=== PATIENT | male | born 1960 | race Caucasian/White ===

== ENCOUNTER 2018-03-08 09:36 | Inpatient (IN) | payer MEDICARE ==
[~2018-03-08] VITALS: Ht 182.9 cm; Wt 102.1 kg
[~2018-03-08 09:36] MED LIST: ALLO300 PO; ARIP15 PO; B Complex #11 EACH PO; CITA20 PO; CO Q10 50 MG PO; Cartia Xt180 MG PO; DILT180 PO; ENAL10 PO; Flovent Diskus50 MCG INH; LORA1 PO; MECL25 PO; OSTEO BI-FLEX1 EAC2 PO; OXCA300 PO; PRAV20 PO; PRED10 PO; TRAM50 PO; [UNRECOGNIZED DRUG - REMARK]
[2018-03-08] MEDS ORDERED: CENTRUM SILVER1 EAC2 PO (14:54)
[2018-03-08] MEDS ORDERED: ALPR.5 PO (14:55)
[2018-03-08] MEDS ORDERED: DILT180 PO (14:56)
[2018-03-08] MEDS ORDERED: Pravachol80 MG PO (14:56)
[2018-03-08] MEDS ORDERED: OLANZAPINE2.5 MG PO (14:57)
[2018-03-08] MEDS ORDERED: Budeprion Xl300 MG PO ×2 (14:57→14:58)
[2018-03-10 05:19] LABS: BASOPHILS PERCENT AUTO 0 % (0-2); EOSINOPHILS PERCENT AUTO 0 % (0-6); Hematocrit 40.3 % (37.0-53.0); Hemoglobin 13.6 g/dL (13.5-17.5); IMMATURE GRAN ABSOLUTE AUTO 0.07 K/mm3 (0.00-0.10); IMMATURE GRAN PERCENT AUTO 1 % (0-1); LYMPHOCYTES ABSOLUTE AUTO 1.19 K/mm3 (0.84-5.20); LYMPHOCYTES PERCENT AUTO 9 % (21-46); MONOCYTES ABSOLUTE AUTO 0.71 K/mm3 (0.16-1.47); MONOCYTES PERCENT AUTO 5 % (4-13); Mean Corpuscular HGB 30.9 pg (26.0-34.0); Mean Corpuscular HGB Conc 33.7 g/dL (31.5-36.5); Mean Platelet Volume 10.1 fL (9.1-12.4); NEUTROPHILS ABSOLUTE AUTO 11.75 K/mm3 (1.96-9.15); NEUTROPHILS PERCENT AUTO 86 % (41-73); Platelet Count 211 K/mm3 (150-400); RDW Coefficient Variation 12.5 % (11.7-14.2); White Blood Cell Count 13.72 K/mm3 (4.00-11.30)
[2018-03-10 05:27] LABS: Mean Corpuscular Volume 92 fL (80-100)
[2018-03-10 05:39] LABS: Anion Gap 8 mmol/L (6-16); Blood Urea Nitrogen 19 mg/dL (8-24); Bun/Creatinine Ratio 16.7 (12.0-20.0); CO2, Blood 26 mmol/L (21-32); Calcium, Blood 8.4 mg/dL (8.5-10.1); Chloride, Blood 106 mmol/L (98-108); Creatinine, Blood 1.14 mg/dL (0.60-1.20); Glomerular Filtration Rate >60 (60-); Glucose, Blood 132 mg/dL (70-99); Potassium, Blood 4.5 mmol/L (3.5-5.5); Sodium, Blood 140 mmol/L (136-145)
[2018-03-11] MEDS ORDERED: HYDMOR2 PO (14:22)
== END 2018-03-11 14:31 | disposition home or self-care (01) | DRG 983 ==
LOC: SURS 03-09 07:57
PROVIDERS: Surgery
PROC: 0DB80ZZ Excision of Small Intestine, Open Approach (ICD-10-PCS; principal; 2018-03-09 09:30)
DX: C64.9 Malignant neoplasm of unspecified kidney, except renal pelvis (principal); Z87.891 Personal history of nicotine dependence; I10 Essential (primary) hypertension; N40.0 Benign prostatic hyperplasia without lower urinary tract symptoms; M19.90 Unspecified osteoarthritis, unspecified site; J30.2 Other seasonal allergic rhinitis; Z90.5 Acquired absence of kidney; R01.1 Cardiac murmur, unspecified
CPT/HCPCS: 36415; 80048; 85025; 88309; J0295; J1100; J1170; J1885; J2250; J2370; J2405; J2710; J3010; J7120

== ENCOUNTER 2018-07-20 09:15 | Day surgery (SDC) | payer MEDICARE ==
[~2018-07-20] VITALS: Ht 182.9 cm; Wt 101.4 kg
[~2018-07-20 09:15] MED LIST changes: +24 HOUR ALLERG9.9 ML; +ACET500 PO; +ALPR.5 PO; +ALPR.5CR PO; +BACL10 PO; +Budeprion Xl300 MG PO; +CENTRUM SILVER1 EAC2 PO; +CENTRUM SILVER1 EAC4 PO; +CO Q1060 MG PO; +DIAZ10 PO; +DOCU100 PO; +Ester-C 500 MG1 EACH PO; +HYDMOR2 PO; +OLAN5 PO; +OLANZAPINE2.5 MG PO; +OXYC5 PO; +Pravachol80 MG PO; +Sutent50 MG PO; +Vitamin B Comple1 EA PO
[2018-07-20] MEDS ORDERED: OLAN5 (10:31)
== END 2018-07-20 12:24 | disposition home or self-care (01) ==
LOC: ORSCSDS 09:15
PROVIDERS: Internal Medicine Gastroenterology
PROC: 0DBH8ZX Excision of Cecum, Via Natural or Artificial Opening Endoscopic, Diagnostic (ICD-10-PCS; principal; 2018-07-20 10:45)
DX: Z12.11 Encounter for screening for malignant neoplasm of colon (principal); D12.0 Benign neoplasm of cecum; K64.8 Other hemorrhoids; K57.30 Diverticulosis of large intestine without perforation or abscess without bleeding; Z86.010 Personal history of colon polyps; I10 Essential (primary) hypertension; Z87.891 Personal history of nicotine dependence; E78.5 Hyperlipidemia, unspecified; Z79.899 Other long term (current) drug therapy
CPT/HCPCS: 88305; J7120

== ENCOUNTER 2019-05-05 07:20 | Day surgery (SDC) | payer MEDICARE, OTHER ==
[~2019-05-05] VITALS: Ht 182.9 cm; Wt 103.2 kg
[~2019-05-05 07:20] MED LIST changes: +Alprazolam ER1 MG PO; +BUPROPION HCL200 MG PO; +Co Q-1030 MG PO; +Flonase 0.05% N16 GM INH; +METO25 PO; +MYNEPHRON CAPSUL1 MG PO; +OLAN5; +VOTRIENT200 MG
[2019-05-05] MEDS ORDERED: DIAZ10 (08:11)
--- NOTE | 2019-05-05 10:40 | NUR ---
05/05/19 1040 Shea Burnette ASSUMED CARE OF PATIENT FROM ESHA Cortes RN PATIENT C/O PAIN RATED AT 5/10, MEDICATED PER ORDERS. VSS.
== END 2019-05-05 11:21 | disposition home or self-care (01) ==
LOC: ORSCSDS 07:20
PROVIDERS: Orthopaedic Surgery
PROC: 01N40ZZ Release Ulnar Nerve, Open Approach (ICD-10-PCS; principal; 2019-05-05 08:45)
DX: G56.22 Lesion of ulnar nerve, left upper limb (principal); I10 Essential (primary) hypertension; Z87.891 Personal history of nicotine dependence; Z79.899 Other long term (current) drug therapy
CPT/HCPCS: J0171; J0690; J1100; J2250; J2405; J2704; J3010; J7120

== ENCOUNTER → 2019-11-28 | Outpatient (CLI) | payer MEDICARE, OTHER ==
[~2019-11-28] MED LIST changes: +DIAZ10
== END | disposition home or self-care (01) ==
LOC: LAB SHORT 12:28 → PLD 12:28
DX: D48.5 Neoplasm of uncertain behavior of skin (principal)
CPT/HCPCS: 88305

== ENCOUNTER 2021-07-02 11:46 | Day surgery (SDC) | payer MEDICARE ==
[~2021-07-02] VITALS: Ht 182.9 cm; Wt 103.4 kg
== END 2021-07-02 13:03 | disposition home or self-care (01) ==
LOC: ORSCSDS 11:46
PROVIDERS: Internal Medicine Gastroenterology
PROC: 0DJD8ZZ Inspection of Lower Intestinal Tract, Via Natural or Artificial Opening Endoscopic (ICD-10-PCS; principal; 2021-07-02 12:30)
DX: Z12.11 Encounter for screening for malignant neoplasm of colon (principal); Z86.010 Personal history of colon polyps; Z80.0 Family history of malignant neoplasm of digestive organs; Z79.899 Other long term (current) drug therapy
CPT/HCPCS: J0461; J2405; J2704; J7120

== ENCOUNTER 2022-05-22 08:44 | Day surgery (SDC) | payer MEDICARE ==
[~2022-05-22] VITALS: Ht 182.9 cm; Wt 97.9 kg
[2022-05-22] MEDS ORDERED: KATERZIA1 MG/1 ML (09:16)
[2022-05-22] MEDS ORDERED: CALC.25 (09:17)
[2022-05-22] MEDS ORDERED: ERGO400 (09:18)
[2022-05-22] MEDS ORDERED: TAMS.4ER (09:18)
[2022-05-22] MEDS ORDERED: K-Dur10 MEQ (09:18)
[2022-05-22] MEDS ORDERED: HYDRA25 (09:18)
[2022-05-22] MEDS ORDERED: Buspirone HCl15 MG (09:19)
== END 2022-05-22 11:20 | disposition home or self-care (01) ==
LOC: ORSCSDS 08:44
PROVIDERS: Internal Medicine Gastroenterology
PROC: 0DBL8ZX Excision of Transverse Colon, Via Natural or Artificial Opening Endoscopic, Diagnostic (ICD-10-PCS; principal; 2022-05-22 10:15)
PROC: 0DBM8ZX Excision of Descending Colon, Via Natural or Artificial Opening Endoscopic, Diagnostic (ICD-10-PCS; principal; 2022-05-22 10:15)
DX: Z86.010 Personal history of colon polyps (principal); D12.3 Benign neoplasm of transverse colon; K51.40 Inflammatory polyps of colon without complications; K64.8 Other hemorrhoids; Z12.11 Encounter for screening for malignant neoplasm of colon; Z80.0 Family history of malignant neoplasm of digestive organs; I12.9 Hypertensive chronic kidney disease with stage 1 through stage 4 chronic kidney disease, or unspecified chronic kidney disease; N18.4 Chronic kidney disease, stage 4 (severe); Z99.2 Dependence on renal dialysis; F31.9 Bipolar disorder, unspecified; E78.5 Hyperlipidemia, unspecified; Z85.528 Personal history of other malignant neoplasm of kidney; Z87.891 Personal history of nicotine dependence; Z79.899 Other long term (current) drug therapy
CPT/HCPCS: 88305; J2704; J7030; J7120

== ENCOUNTER 2024-06-21 13:13 | Day surgery (SDC) | payer OTHER ==
[~2024-06-21] VITALS: Ht 182.9 cm; Wt 98.6 kg
[~2024-06-21 13:13] MED LIST changes: +Buspirone HCl15 MG; +CALC.25; +ERGO400; +Glycopyrrolate 0.2 MG/ML 1MLVIAL ONE; +HYDRA25; +K-Dur10 MEQ; +KATERZIA1 MG/1 ML; +Lactated Ringer's 1,000 ML IV ONE; +Lidocaine 2% 5 ML SDV ONE; +Lidocaine HCl/Pf 1% 5 ML VIAL ONE; +Ondansetron HCl 2 MG / ML 2ML Vial ONE; +TAMS.4ER; +ePHEDrine Sulfate 50 MG/ML 1ML Injection ONE
[2024-06-21] MEDS ORDERED: OXYB5 (14:03)
[2024-06-21] MEDS ORDERED: NS 1,000 ML IV ONE (15:14)
[2024-06-21] MEDS ORDERED: Lidocaine HCl 4% 5 ML SDA ONE (15:21)
[2024-06-21] MEDS ORDERED: propofoL 20 ML IV ONE (15:24)
[2024-06-21] MEDS ORDERED: Ondansetron HCl 2 MG / ML 2ML Vial ONE (15:30)
[2024-06-21 16:50] VITALS: BP 151/73
== END 2024-06-21 16:20 | disposition home or self-care (01) ==
LOC: ORSCSDS 13:13
PROVIDERS: Internal Medicine Gastroenterology
PROC: 0DB58ZX Excision of Esophagus, Via Natural or Artificial Opening Endoscopic, Diagnostic (ICD-10-PCS; principal; 2024-06-21 15:15)
DX: R10.13 Epigastric pain (principal); R63.4 Abnormal weight loss; K22.70 Barrett's esophagus without dysplasia; E78.5 Hyperlipidemia, unspecified; I12.0 Hypertensive chronic kidney disease with stage 5 chronic kidney disease or end stage renal disease; K59.00 Constipation, unspecified; N18.5 Chronic kidney disease, stage 5; Z87.891 Personal history of nicotine dependence; Z79.899 Other long term (current) drug therapy
CPT/HCPCS: 88305; J2003; J2405; J2704; J7120

== ENCOUNTER 2024-09-23 10:08 | Day surgery (SDC) | payer OTHER ==
[~2024-09-23] VITALS: Ht 182.9 cm; Wt 94.0 kg
[~2024-09-23 10:08] MED LIST changes: -Glycopyrrolate 0.2 MG/ML 1MLVIAL ONE; -Lidocaine 2% 5 ML SDV ONE; -Lidocaine HCl/Pf 1% 5 ML VIAL ONE; +OXYB5; -Ondansetron HCl 2 MG / ML 2ML Vial ONE; -ePHEDrine Sulfate 50 MG/ML 1ML Injection ONE
[2024-09-23] MEDS ORDERED: propofoL 50 ML IV ONE (11:02)
[2024-09-23] MEDS ORDERED: Lactated Ringer's 1,000 ML IV ONE (11:06)
[2024-09-23 12:54] VITALS: BP 108/61
--- NOTE | 2024-09-23 12:58 | NUR ---
09/23/24 Joseline Cuellar PT REPORTED SLIGHT DIZZINESS FROM VERTIGO AND HE STATES "PROBABLY FROM THE MEDICATION", VITALS WITHIN NORMAL RANGE, NO ABNORMAL SYMPTOMS REPORTED BY PATIENT, PATIENT EXPRESSES READINESS TO LEAVE.
== END 2024-09-23 12:54 | disposition home or self-care (01) ==
LOC: ORSCSDS 10:08
PROVIDERS: Internal Medicine Gastroenterology
PROC: 0DBH8ZX Excision of Cecum, Via Natural or Artificial Opening Endoscopic, Diagnostic (ICD-10-PCS; principal; 2024-09-23 11:45)
DX: R63.4 Abnormal weight loss (principal); D12.0 Benign neoplasm of cecum; I12.0 Hypertensive chronic kidney disease with stage 5 chronic kidney disease or end stage renal disease; N18.5 Chronic kidney disease, stage 5; Z87.891 Personal history of nicotine dependence; Z79.899 Other long term (current) drug therapy; Z85.46 Personal history of malignant neoplasm of prostate; Z85.528 Personal history of other malignant neoplasm of kidney; Z86.0101 Personal history of adenomatous and serrated colon polyps; Z80.0 Family history of malignant neoplasm of digestive organs
CPT/HCPCS: 36415; 80048; 88305; J2704; J7120

== ENCOUNTER 2024-10-16 14:35 | Inpatient (IN) | payer OTHER ==
[~2024-10-16] VITALS: Ht 182.9 cm; Wt 93.6 kg
[~2024-10-16 14:35] MED LIST changes: +Buspirone HCl15 MG PO; -DIAZ10; -HYDRA25; +HYDRA25 PO; -Lactated Ringer's 1,000 ML IV ONE; -TAMS.4ER; +TAMS.4ER PO
[2024-10-16] MEDS ORDERED: Morphine Sulfate 4 MG/1 ML Injection IV ONE (15:35)
[2024-10-16 15:44] LABS: BASOPHILS PERCENT AUTO 0 % (0-2); EOSINOPHILS ABSOLUTE AUTO 0.37 K/mm3 (0.00-0.68); EOSINOPHILS PERCENT AUTO 5 % (0-6); Hematocrit 36.8 % (37.0-53.0); Hemoglobin 12.2 g/dL (13.5-17.5); IMMATURE GRAN ABSOLUTE AUTO 0.02 K/mm3 (0.00-0.10); IMMATURE GRAN PERCENT AUTO 0 % (0-1); LYMPHOCYTES ABSOLUTE AUTO 1.84 K/mm3 (0.84-5.20); LYMPHOCYTES PERCENT AUTO 27 % (21-46); MONOCYTES ABSOLUTE AUTO 0.55 K/mm3 (0.16-1.47); MONOCYTES PERCENT AUTO 8 % (4-13); Mean Corpuscular HGB 31.8 pg (26.0-34.0); Mean Corpuscular HGB Conc 33.2 g/dL (31.5-36.5); Mean Corpuscular Volume 96 fL (80-100); Mean Platelet Volume 9.8 fL (9.1-12.4); NEUTROPHILS ABSOLUTE AUTO 4.03 K/mm3 (1.96-9.15); NEUTROPHILS PERCENT AUTO 59 % (41-73); Platelet Count 162 K/mm3 (150-400); RDW Coefficient Variation 13.4 % (11.7-14.2); RDW Standard Deviation 46.4 fL (35.1-46.3); Red Blood Cell Count 3.84 M/mm3 (4.30-5.90); White Blood Cell Count 6.81 K/mm3 (4.00-11.30)
[2024-10-16 16:04] LABS: International Normalized Ratio 1.01; Prothrombin Time Results 10.8 Sec (9.7-11.5)
[2024-10-16 16:15] LABS: Albumin, Blood 3.2 g/dL (3.4-5.0); Bilirubin, Total 0.4 mg/dL (0.1-1.0); Bun/Creatinine Ratio 7.7 (12.0-20.0); Calcium, Blood 8.3 mg/dL (8.5-10.1); Creatinine, Blood 3.39 mg/dL (0.60-1.20); Globulin, Blood 3.3 g/dL (2.2-4.0); Potassium, Blood 4.3 mmol/L (3.5-5.5); Total Protein, Blood 6.5 g/dL (6.4-8.2)
[2024-10-16] MEDS ORDERED: BUPROPION XL150 M1 PO (16:19)
[2024-10-16] MEDS ORDERED: POTCHL20ER PO (16:20)
[2024-10-16] MEDS ORDERED: OLAN20 MM (16:21)
[2024-10-16] MEDS ORDERED: FentaNYL Citrate 50 MCG/ML 2 ML Injection IV PRN (18:25)
[2024-10-16] MEDS ORDERED: FLU VACC TS2024-25(6MOS UP)/PF 45 MCG/0.5 ML SYRINGE IM ONE (18:25)
[2024-10-16] MEDS ORDERED: Ondansetron HCl 2 MG / ML 2ML Vial IV PRN (18:25)
[2024-10-16] MEDS ORDERED: OxyCODONE 5 mg/Acetamin 325 mg TABLET PO PRN (18:25)
[2024-10-16] MEDS ORDERED: ZYPREXA15 MG PO (20:29)
[2024-10-16] MEDS ORDERED: BusPIRone HCl 5 MG Tab PO SCH (21:00)
[2024-10-16] MEDS ORDERED: OLANZapine ODT 10 MG Tab MM SCH (21:00)
[2024-10-16] MEDS ORDERED: Docusate Sodium/Senna 1 Tab PO SCH (21:00)
[2024-10-16] MEDS ORDERED: HydrALAZINE HCl 25 MG Tab PO SCH (21:00)
[2024-10-16 22:11] VITALS: BP 160/81
[2024-10-17] VITALS (22 sets, daily range): BP systolic 108–173; BP diastolic 49–86
[2024-10-17 05:32] LABS: Hematocrit 31.2 % (37.0-53.0); Hemoglobin 10.6 g/dL (13.5-17.5); Mean Corpuscular HGB 32.2 pg (26.0-34.0); Mean Corpuscular Volume 95 fL (80-100); Mean Platelet Volume 9.5 fL (9.1-12.4); Platelet Count 207 K/mm3 (150-400); RDW Coefficient Variation 13.6 % (11.7-14.2); RDW Standard Deviation 46.6 fL (35.1-46.3); Red Blood Cell Count 3.29 M/mm3 (4.30-5.90); White Blood Cell Count 10.06 K/mm3 (4.00-11.30)
--- NOTE | 2024-10-17 05:47 | NUR ---
SHIFT SUMMARY PT BROUGHT IN FROM ED APPROX 2200 AFTER FALLING AT HOME D/T THE FLOODS. HE FRACTURED HIS LEFT FEMUR AT THE KNEE JOINT. PT IS SCHEDULED FOR SURGERY IN AM. HE IS CURRENTLY ON BED REST, SO A MALE PUREWIC HAS BEEN PLACED FOR PT S COMFORT. PT EXPRESSED HE IS IN PAIN WITH MOVEMENT, BUT WHEN LYING STILL HAS MINIMAL PAIN. PAIN MEDICATION ADMINISTERED. PT RESTING PEACEFULLY AT THIS TIME. CALL LIGHT IN REACH. [address] BEENA KOEHLER OFFICE FOR ORTHO CONSULT.
[2024-10-17 05:50] LABS: Prothrombin Time Results 10.7 Sec (9.7-11.5)
[2024-10-17 06:00] LABS: Bun/Creatinine Ratio 8.2 (12.0-20.0); Calcium, Blood 8.6 mg/dL (8.5-10.1); Creatinine, Blood 3.52 mg/dL (0.60-1.20); Potassium, Blood 4.5 mmol/L (3.5-5.5)
[2024-10-17] MEDS ORDERED: Tamsulosin HCl 0.4 MG Cap PO SCH (09:00)
[2024-10-17] MEDS ORDERED: Pravastatin Sodium 20 MG Tab PO SCH (09:00)
[2024-10-17] MEDS ORDERED: BuPROPion HCl 75 MG Tab PO SCH (09:00)
[2024-10-17] MEDS ORDERED: CeFAZolin Sodium 2,000 MG in NS 100 ML IV SCH (13:20)
[2024-10-17] MEDS ORDERED: Tranexamic Acid 100 ML IV SCH (13:20)
[2024-10-17] MEDS ORDERED: Lactated Ringer's 1,000 ML IV SCH (13:20)
[2024-10-17] MEDS ORDERED: NS 1,000 ML IV SCH (14:15)
[2024-10-17] MEDS ORDERED: propofoL 20 ML IV ONE (14:22)
[2024-10-17] MEDS ORDERED: Rocuronium Bromide 10 MG/ML 5ML Injection IV ONE (14:23)
[2024-10-17] MEDS ORDERED: Lidocaine HCl 2% 20 ML MDV ONE (14:23)
[2024-10-17] MEDS ORDERED: FentaNYL Citrate 50 MCG/ML 2 ML Injection ONE (14:24)
[2024-10-17] MEDS ORDERED: Phenylephrine HCl 100 MCG/ML-NS 10MLSYR (1MG/10ML) ONE ×2 (14:39→15:27)
[2024-10-17] MEDS ORDERED: Ondansetron HCl 2 MG / ML 2ML Vial ONE (14:47)
[2024-10-17] MEDS ORDERED: Dexamethasone Sod Phos 10 MG/ML 1ML VIAL ONE (14:47)
[2024-10-17] MEDS ORDERED: Albuterol 2.5 MG/3 ML VIAL INH PRN (15:30)
[2024-10-17] MEDS ORDERED: Ondansetron HCl 2 MG / ML 2ML Vial IV PRN (15:30)
[2024-10-17] MEDS ORDERED: FentaNYL Citrate 50 MCG/ML 2 ML Injection IV PRN ×3 (15:35)
[2024-10-17] MEDS ORDERED: HYDROmorphone HCl/Pf 1MG SYR IV PRN (15:35)
[2024-10-17] MEDS ORDERED: Labetalol HCL 5 MG/ML 4ML Injection (Single Dose) IV PRN (15:35)
[2024-10-17] MEDS ORDERED: ePHEDrine Sulfate 50 MG/ML 1ML Injection IV PRN (15:35)
[2024-10-17] MEDS ORDERED: HYDROmorphone HCl/Pf 1MG SYR ONE (16:14)
[2024-10-17] MEDS ORDERED: Bupivacaine 0.25% Epi 1:200000 30 ML Vial ONE (16:25)
[2024-10-17] MEDS ORDERED: Sugammadex Sodium 200 MG/2ML SDV (100 MG/ML) ONE (16:41)
--- NOTE | 2024-10-17 18:17 | NUR ---
TRANSFER TO UNIT AFTER RECEIVING REPORT FROM BIOMEDICAL ENGINEERING PROFESSOR, PATIENT TRANSFERRED TO UNIT VIA BED AT APPROX 1745. PATIENT LETHARGIC - EASILY AROUSABLE WITH VERBAL STIMULI BEFORE FALLING BACK TO SLEEP. DENIES PAIN. S/P L ORIF. LLE IN ACEWRAP AND BRACE - PPP. BRUISING NOTED TO TOP OF L FOOT. ON 2L VIA NC, SATs >90%. RR SHALLOW. SBP 150s. MAP >65. SCHEDULED PO HYDRALAZINE ORDERED FOR 2100. DENIES CHEST PAIN, PRESSURE. MALE PW IN PLACE TO SUCTION. IVF AND TXA INFUSING TO GRAVITY. CALL LIGHT IN REACH.
[2024-10-17] MEDS ORDERED: Docusate Sodium 100 MG Cap PO SCH (21:00)
[2024-10-18 04:53] VITALS: BP 155/72
[2024-10-18 04:54] VITALS: BP 155/72
--- NOTE | 2024-10-18 05:26 | NUR ---
SHIFT SUMMARY POD 1 L FEMUR ORIF. NO ACUTE CHANGES OVERNIGHT. VSS. TOLERATING ORALS. VOIDING USING MALE PUREWICK. HEMODIALYSIS THROUGHOUT THE NIGHT. LLE c SAEED WRAP/BRACE IN USE. PT REPORTS PAIN TOLERABLE, MEDICATED PER EMAR. MAINTAINED BEDREST STATUS. PT SLEPT WELL. CALL LIGHT IN REACH, BED IN LOWEST POSITION, WILL REPORT TO DAY RN.
[2024-10-18 08:16] VITALS: BP 144/69
[2024-10-18 15:23] VITALS: BP 135/63
--- NOTE | 2024-10-18 15:48 | NUR ---
end of shift Pt presently up to chair with 2-3 max assist. Previously sat up on bsc to pass flatus without successful bm. Wearing Knee brace L leg. LLE remains hawk wrapped. Presently resting quietly. denies complaints.
[2024-10-18 19:49] VITALS: BP 126/73
--- NOTE | 2024-10-18 20:30 | NUR ---
DISCHARGE PT REQUESTED TO DISCHARGE THIS EVENING. MICHELLE WINKLER RN WENT OVER DISCHARGE INSTRUCTIONS WITH PT. MEDF REC COMPLETED, AND DISCHARGE PAPERWORK SIGNED. IV REMOVED. WAITING TO BE WHEELED BY DISPATCHER BUS AND TROLLEY AT THIS TIME.
[2024-10-19 03:13] LABS: BASOPHILS ABSOLUTE AUTO 0.01 K/mm3 (0.00-0.23); BASOPHILS PERCENT AUTO 0 % (0-2); EOSINOPHILS ABSOLUTE AUTO 0.05 K/mm3 (0.00-0.68); EOSINOPHILS PERCENT AUTO 1 % (0-6); Hematocrit 23.4 % (37.0-53.0); Hemoglobin 7.9 g/dL (13.5-17.5); IMMATURE GRAN ABSOLUTE AUTO 0.02 K/mm3 (0.00-0.10); IMMATURE GRAN PERCENT AUTO 0 % (0-1); LYMPHOCYTES ABSOLUTE AUTO 2.44 K/mm3 (0.84-5.20); LYMPHOCYTES PERCENT AUTO 26 % (21-46); MONOCYTES PERCENT AUTO 11 % (4-13); Mean Corpuscular HGB 31.7 pg (26.0-34.0); Mean Corpuscular HGB Conc 33.8 g/dL (31.5-36.5); Mean Corpuscular Volume 94 fL (80-100); Mean Platelet Volume 9.7 fL (9.1-12.4); NEUTROPHILS ABSOLUTE AUTO 5.83 K/mm3 (1.96-9.15); NEUTROPHILS PERCENT AUTO 62 % (41-73); Platelet Count 155 K/mm3 (150-400); RDW Coefficient Variation 13.5 % (11.7-14.2); RDW Standard Deviation 46.5 fL (35.1-46.3); Red Blood Cell Count 2.49 M/mm3 (4.30-5.90); White Blood Cell Count 9.35 K/mm3 (4.00-11.30)
[2024-10-19 03:37] LABS: Albumin, Blood 2.7 g/dL (3.4-5.0); Anion Gap 9 mmol/L (3-11); Blood Urea Nitrogen 40 mg/dL (8-24); CO2, Blood 25 mmol/L (21-32); Calcium, Blood 8.1 mg/dL (8.5-10.1); Chloride, Blood 108 mmol/L (98-108); Creatinine, Blood 4.42 mg/dL (0.60-1.20); Glomerular Filtration Rate 14 (60-); Glucose, Blood 106 mg/dL (70-99); Iron Serum 23 ug/dL (65-175); Percent Saturation 12.8 % (20.0-50.0); Phosphorus, Blood 3.8 mg/dL (2.5-4.9); Potassium, Blood 3.9 mmol/L (3.5-5.5); Sodium, Blood 138 mmol/L (136-145); Total Iron Binding Capacity 179 ug/dL (250-450)
[2024-10-19 04:10] VITALS: BP 147/73
--- NOTE | 2024-10-19 05:53 | NUR ---
SHIFT SUMMARY PT HAS RESTED T/O THE SHIFT. PT S/P LEFT ORIF, SURGICAL SITE WNL. PAIN BEING MANAGED PER MAR. MALE PUREWICK IN PLACE, PT VOIDING. PERITONEAL DIALYSIS IN PLACE T/O SHIFT, BEING MANAGED BY RN INTENSIVE CARE UNIT. VITALS STABLE. PLAN OF CARE UNCHANGED. BED IN LOWEST POSITION, CALL LIGHT WITHIN REACH.
--- NOTE | 2024-10-19 07:31 | NUR ---
PT EYES CLOSED AND QUIET UPON ENTERING ROOM. PT WAKENS EASILY TO FULL ORIENT. OVERNIGHT PD THERAPY COMPLETE ORDERED. PT AESEPTICALLY DISCONNECTED AND CAPPED. CYCLER STRIPPED AND CLEANED.
[2024-10-19 07:34] VITALS: BP 137/64
[2024-10-19] MEDS ORDERED: Potassium Chloride 10 Meq Tablet SA PO SCH (08:00)
[2024-10-19] MEDS ORDERED: Vitamin B Cmplx/Vit C/Folic Ac 1 Tab PO SCH (09:00)
[2024-10-19] MEDS ORDERED: OxyCODONE 5 mg/Acetamin 325 mg TABLET PO PRN (10:55)
[2024-10-19] MEDS ORDERED: Docusate Sodium 100 MG Cap PO SCH (11:00)
[2024-10-19] MEDS ORDERED: Sod Ferric Gluc Complx/Sucrose 125 MG in NS 100 ML IV SCH (12:00)
[2024-10-19 15:21] VITALS: BP 127/62
[2024-10-19] MEDS ORDERED: Epoetin Alfa-EPBX 10,000 Unit/ML 1ML Vial SC SCH (17:10)
--- NOTE | 2024-10-19 17:33 | NUR ---
SUMMARY AOX4, IMMOBILIZER WITH SAEED WRAP TO RLE, SCDS IN PLACE. PATIENT WORKED WITH THERAPY TO EOB, DENIES N/V. LITTLE INTAKE D/T DECREASED APPETITE. MEDICATED FOR PAIN. PD DIALYSIS IS RUNNING WITH EDUIN WARNER THIS EVENING. VERY LOW URINE OUTPUT. NO ACUTE EVENTS. CALL LIGHT IN REACH.
--- NOTE | 2024-10-19 18:42 | NUR ---
PT AWAKE / ALERT LAYING IN BED WATCHING TV. PT VERBALIZED RELATIVE COMFORT AT THIS TIME. CYCLER STRUNG, PRIMED AND PROGRAMMED PER RX. WHEN PRIME COMPLETE, PT AESEPTICALLY CONNECTED. PT MONITORED THROUGH FILL #1 AND NO DISCOMFORT REPORTED. EXIT SITE CARE DONE. NEW STERILE DRESSING APPLIED WITH ONE STRAIN RELIEF.
[2024-10-19 19:17] LABS: HEPATITIS B SURFACE ANTIGEN Negative (Negative)
[2024-10-19 19:28] LABS: HEPATITIS B SURFACE ANTIBODY 31.54 IU/L
[2024-10-19 19:41] LABS: HBV CORE ANTIBODIES,TOTAL Negative (Negative)
[2024-10-19 21:35] VITALS: BP 144/65
[2024-10-20 04:16] VITALS: BP 133/58
--- NOTE | 2024-10-20 04:58 | NUR ---
SHIFT SUMMARY S/P LEFT KNEE ORIF. IMMOBILIZER AND SAEED WRAP IN PLACE TO LLE/KNEE. PAIN MANAGED PER EMAR. IS VOIDING, MALE PUREWICK IN PLACE. PRINCE PO INTAKE. IV PATENT/SL. TMAX 100.1 AT 2100 VITALS; PT EDUCATED ON AND FREQUENTLY ENCOURAGED DEEP BREATHING EXERCISES. PT DEMONSTRATED AND VERBALIZED UNDERSTANDING. EXTRA BLANKETS REMOVED AND THERMOSTAT DECREASED DUE TO BEING ON MAX HIGH. TEMP POST INTERVENTIONS REMAINED UNDER 100. PT REFUSED SCDS. PD DIALYSIS PORT CDI. PLAN TO WORK WITH THERAPY TODAY. WILL GIVE REPORT TO ONCOMING RN.
[2024-10-20 05:49] LABS: Albumin, Blood 2.4 g/dL (3.4-5.0); Anion Gap 10 mmol/L (3-11); Blood Urea Nitrogen 42 mg/dL (8-24); Bun/Creatinine Ratio 9.2 (12.0-20.0); CO2, Blood 25 mmol/L (21-32); Calcium, Blood 8.3 mg/dL (8.5-10.1); Chloride, Blood 107 mmol/L (98-108); Creatinine, Blood 4.59 mg/dL (0.60-1.20); Glomerular Filtration Rate 14 (60-); Glucose, Blood 112 mg/dL (70-99); Phosphorus, Blood 3.4 mg/dL (2.5-4.9); Potassium, Blood 3.5 mmol/L (3.5-5.5); Sodium, Blood 138 mmol/L (136-145)
[2024-10-20 07:22] VITALS: BP 125/62
[2024-10-20] MEDS ORDERED: Heparin Sodium 5000 Units/ML 1ML MDV SC SCH (11:04)
[2024-10-20] MEDS ORDERED: Sod Ferric Gluc Complx/Sucrose 125 MG in NS 100 ML IV SCH (12:00)
[2024-10-20 14:40] VITALS: BP 135/67
[2024-10-20] MEDS ORDERED: Heparin Sodium 1000 Units/ML 10ML MDV ONE (16:07)
[2024-10-20] MEDS ORDERED: NS 250 ML IV ONE (16:08)
--- NOTE | 2024-10-20 16:23 | NUR ---
SHIFT SUMMARY NO ACUTE CHANGES TODAY. VSS. SAEED WRAP + IMMOBILIZER TO LLE ARE CDI. PT WORKED WITH THERAPY TODAY AND WAS UP TO THE SIDE OF THE BED DOING EXERCISES. THERAPY VERBALIZED IT WAS AN IMPROVED SESSION FROM YESTERDAY. 2 ROXICODONE FOR PAIN CONTROL. PT PRINCE REG DIET, BUT NOW NPO FOR PERMACATH PLACEMENT POSSIBLY THIS EVENING. PT USES CALL LIGHT APPROPRIATELY.
--- NOTE | 2024-10-20 16:33 | NUR ---
PT TO IR FOR PERMACATH PLACEMENT.
[2024-10-20] MEDS ORDERED: Midazolam HCl 1MG / ML 2ML Vial ONE (16:37)
[2024-10-20] MEDS ORDERED: NS 1,000 ML IV ONE (16:38)
[2024-10-20] MEDS ORDERED: FentaNYL Citrate 50 MCG/ML 2 ML Injection ONE (16:38)
[2024-10-20] MEDS ORDERED: Heparin Sodium 10,000 Units/ML 1ML MDV ONE (17:03)
[2024-10-20 17:25] VITALS: BP 123/59
--- NOTE | 2024-10-20 17:46 | NUR ---
PT AWAKE / ALERT / ORIENTED, LAYING IN BED POST RIGHT CHEST PERM CATH INSERT EARLIER BY DR RUIZ. CVC SITE CLEAR / INTACT / STABLE. CYCLER STRUNG, PRIMED AND PROGRAMMED PER RX. WHEN PRIME COMPLETE, PT AESEPTICALLY CONNECTED AND OVERNIGHT CCPD STARTED. EXIT SITE CARE PERFORMED. CLEANED WITH EXSEPT AND NEW STERILE DRESSING APPLIED WITH ONE STRAIN RELIEF. SURGICAL FLOOR STAFF AWARE OF OVERNIGHT CCPD IN PROGRESS.
--- NOTE | 2024-10-20 18:07 | NUR ---
NEW PERMACATH TO R CHEST WALL. GRAB OPERATOR AT BEDSIDE CURRENTLY SETTING UP PERITONEAL DIALYSIS.
[2024-10-20 20:31] VITALS: BP 157/59
[2024-10-20 23:14] VITALS: BP 156/67
[2024-10-21] VITALS (16 sets, daily range): BP systolic 98–152; BP diastolic 37–73
[2024-10-21 04:56] LABS: BASOPHILS PERCENT AUTO 0 % (0-2); EOSINOPHILS ABSOLUTE AUTO 0.21 K/mm3 (0.00-0.68); EOSINOPHILS PERCENT AUTO 3 % (0-6); Hematocrit 22.5 % (37.0-53.0); Hemoglobin 7.3 g/dL (13.5-17.5); IMMATURE GRAN ABSOLUTE AUTO 0.02 K/mm3 (0.00-0.10); IMMATURE GRAN PERCENT AUTO 0 % (0-1); LYMPHOCYTES ABSOLUTE AUTO 2.03 K/mm3 (0.84-5.20); LYMPHOCYTES PERCENT AUTO 29 % (21-46); MONOCYTES ABSOLUTE AUTO 0.72 K/mm3 (0.16-1.47); MONOCYTES PERCENT AUTO 10 % (4-13); Mean Corpuscular HGB 31.3 pg (26.0-34.0); Mean Corpuscular HGB Conc 32.4 g/dL (31.5-36.5); Mean Corpuscular Volume 97 fL (80-100); Mean Platelet Volume 9.4 fL (9.1-12.4); NEUTROPHILS ABSOLUTE AUTO 4.04 K/mm3 (1.96-9.15); NEUTROPHILS PERCENT AUTO 58 % (41-73); Platelet Count 176 K/mm3 (150-400); RDW Coefficient Variation 13.7 % (11.7-14.2); Red Blood Cell Count 2.33 M/mm3 (4.30-5.90); White Blood Cell Count 7.02 K/mm3 (4.00-11.30)
[2024-10-21 05:22] LABS: Albumin, Blood 2.5 g/dL (3.4-5.0); Albumin/Globulin Ratio 0.7 (0.8-1.8); Bilirubin, Total 0.5 mg/dL (0.1-1.0); Calcium, Blood 8.5 mg/dL (8.5-10.1); Creatinine, Blood 4.4 mg/dL (0.60-1.20); Globulin, Blood 3.5 g/dL (2.2-4.0); Phosphorus, Blood 3.1 mg/dL (2.5-4.9); Potassium, Blood 3.5 mmol/L (3.5-5.5)
--- NOTE | 2024-10-21 07:43 | NUR ---
PER SUPERVISOR MOLD YARD PATIENT WAS A LITTLE CONFUSED. WHEN I ASSESSED PT HE WAS ALERT AND ORIENTED X3. LT LEG IN SOFT BRACE, ACEWRAP COVERING DRESSING, NO DRAINAGE NOTED. PATIENT ANSWERS QUESTIONS APPROP. USES CALL LIGHT APPROP. PERITONEAL DIALYSIS AT THIS TIME CATH RIGHT ABD. PT HAD A PERMACATH PLACED RIGH UPPER CHEST. SCHEDULED MEDS GIVEN ORDERED. PATIENT TAKES MEDS WITH NO PROBLEMS. THIS AM WHEN LAB CAME TO DRAW BLOOD THE SAID THAT THERE WAS WATER UNDER THE BED AND ALL OVER THE FLOOR. DIALYSIS BAG ON THE BOTTOM RACK WAS DRIPPING STEADLY FROM CAP. TRIED TO TIGHTEN CAP BUT IT CONT.TO LEAK. CLAMP DIRECTLY ABOVE CAP WAS OPEN. CLAMPED SHUT AT THIS TIME AND NOW NOT LEAKING. FLUID WAS GOING UNDER BED T/O NOC AND IT WASNT UNTIL IT CAME OUT FROM UNDER THE BED THEN IT WAS NOTICED. HOUSE KEEPING CALLED. NO ACUTE CHANGES T/O NOC. REPORT TO RN COMING ON TAKING THIS PATIENT. SL LEFT HAND WAS LEAKING, DC'D. RT HAND SL FLUSHED AND PATENT.
--- NOTE | 2024-10-21 09:24 | NUR ---
DIALYSIS: PT TO DIALYSIS AT THIS TIME. AT BEDSIDE. PT GIVEN MORNING MEDS. HYDRALAZINE HELD PER PRECISION MACHINE OPERATOR REQUEST. MEDICATED FOR PAIN.
--- NOTE | 2024-10-21 16:47 | NUR ---
SHIFT SUMMARY/UPDATE ASSUMED CARE OF PT FROM DENISE DENNY AT 1330. PT RESTING IN BED W/ FAMILY AT BEDSIDE. WORKED W/ OT, PT FEBRILE AT 100.2 AND TACHY AT 112 PAINFUL AFTER THERAPY. MEDICATED W/ PERCOCET PER EMAR. ORAL TEMP RECHECK 98.8, BUT PT THEN BECAME INCREASINGLY CONFUSED, ALERT AND RESPONSIVE BUT ONLY ORIENTED TO HIMSELF. DR. OH NOTIFIED OF PT'S FEVER, TACHYCARDIA, AND INCREASED CONFUSION. ORDERS FOR CULTURES RECIEVED AND URINALYSIS. AWAITING PT'S NEXT VOID. SKIN CHECKED FOR NEW INJURIES/REDNESS PER DR. OH, NO NEW FINDINGS NOTED. DR. OH TO ASSESS PT AT BEDSIDE THIS EVENING. DRESSING TO L LEG C/D/I, INCISION SITE W/O REDNESS/SWELLING. PT ABLE TO WIGGLE L TOES ON COMMAND, PEDAL PULSE PALPABLE. AREA AROUND PERMACATH ALSO C/D/I W/O REDNESS/INFLAMMATION. PT RESTING IN BED W/ CAMP DIRECTOR AT BEDSIDE, CALL LIGHT IN REACH, BED ALARM ON.
[2024-10-21] MEDS ORDERED: Magnesium Hydroxide Conc 10 ML UDC PO PRN (16:50)
[2024-10-21] MEDS ORDERED: Sod Ferric Gluc Complx/Sucrose 125 MG in NS 100 ML IV SCH (17:00)
[2024-10-21] MEDS ORDERED: Acetaminophen 325 MG TABLET PO PRN (17:55)
--- NOTE | 2024-10-21 18:03 | NUR ---
DIALYSIS NURSE PRO CONTACTED FOR STAT PERMACATH CULTURES PER DR. OH
[2024-10-21 18:08] LABS: Source, Urine Voided
[2024-10-21 18:26] LABS: Appearance, Urine Clear (Clear); Bilirubin, Urine Neg (Neg); Blood, Urine 2+ (Neg); Color, Urine Yellow (P-Yellow); Glucose Qualitative, Urine Neg (Neg); Ketones, Urine Neg (Neg); Leukocyte Esterase, Urine Neg (Neg); Nitrite, Urine Neg (Neg); Protein, Urine 2+ (Neg); Urobilinogen, Urine NORM (Normal)
[2024-10-21 18:42] LABS: Hyaline Casts 0-2 /lpf (0-2); Red Blood Cells, Urine 0-2 /hpf (0-2); Squamous Epithelial Cells Rare /hpf (Few); White Blood Cells, Urine 0-2 /hpf (0-5)
[2024-10-21 18:43] LABS: Bacteria Not Seen /hpf
--- NOTE | 2024-10-21 19:22 | NUR ---
DIALYSIS NURSE CALLED TO COME AND CULTURE PTS HEMODIALYSIS CATHETER. BLOOD CULTURES DRAWN ASEPTICALLY FROM RIGHT PERMACATH AND SENT TO LAB AT APPROX 1915PM.
[2024-10-21] MEDS ORDERED: Docusate Sodium 250 MG Cap PO SCH (21:00)
[2024-10-22 00:36] VITALS: BP 128/51
--- NOTE | 2024-10-22 01:13 | NUR ---
PROVIDER UPDATED HOSPITALIST NOTIFIED OF PT CONFUSION, VITALS SIGNS AND OVERALL STATUS. NO NEW ORDERS OBTAINED.
[2024-10-22 03:33] VITALS: BP 136/63
--- NOTE | 2024-10-22 04:34 | NUR ---
PATY SUMMARY S/P LEFT FEMUR ORIF. BRACE AND SAEED WRAP TO LLE IN PLACE, NO DRAINAGE NOTED. NO C/O OF PAIN. DRESSING TO CATH IN R CHEST CDI. A/O TO SELF ONLY AT START OF SHIFT AND VERY CONFUSED; NOW HAS INTERMITTENT EPISODES OF A/OX3. VITAL SIGNS HAVE IMPROVED. IS VOIDING IN URINAL WITH ASSISTANCE AND PASSING FLATUS. PRINCE PO INTAKE. PT ABLE TO REPOSITION SELF SOME IN BED IND. COMPULSIVE AND IRRITABLE AT TIMES. APPEARS TO HAVE RESTED COMFORTABLY FOR PERIODS T/O NIGHT. SITTER PRESENT FOR ASSISTANCE AND SAFETY. PLAN TO WORK WITH THERAPY TODAY. WILL GIVE REPORT TO ONCOMING RN.
[2024-10-22 05:46] LABS: Albumin, Blood 2.5 g/dL (3.4-5.0); Anion Gap 8 mmol/L (3-11); Blood Urea Nitrogen 32 mg/dL (8-24); Bun/Creatinine Ratio 9.4 (12.0-20.0); CO2, Blood 28 mmol/L (21-32); Calcium, Blood 8.7 mg/dL (8.5-10.1); Chloride, Blood 104 mmol/L (98-108); Creatinine, Blood 3.41 mg/dL (0.60-1.20); Glomerular Filtration Rate 19 (60-); Glucose, Blood 100 mg/dL (70-99); Phosphorus, Blood 2.6 mg/dL (2.5-4.9); Potassium, Blood 3.4 mmol/L (3.5-5.5); Sodium, Blood 137 mmol/L (136-145)
[2024-10-22 08:00] VITALS: BP 153/66
--- NOTE | 2024-10-22 10:36 | NUR ---
MORNING NOTE THIS RN ASSUMED CARE AT APPROX 0715. PATIENT ALERT AND ORIENTED X3 - UNCLEAR TO DATE/TIME, LOCATION. FORGETFUL - ASKS QUESTIONS TO GAIN UNDERSTANDING. FLAT AFFECT. CLINICAL SITTER AT BEDSIDE TO ASSIST WITH CARE AND REDIRECTION. BED ALARM/CHAIR ALARM IN USE. SBP 150s. MAP >65. DENIES CHEST PAIN, PRESSURE. SCHEDULED PO HYDRALAZINE ADMINISTERED PER EMAR. ON ROOM AIR, SATs >90%. S/P L ORIF - IMMOBILIZER IN PLACE. SAEED WRAP C/D/I - NO SHADOWING NOTED. UP WITH PHYSICAL THERAPY THIS MORNING - 2P ASSIST FWW GB. TOE TOUCH WEIGHT BEARING STATUS. PAIN TOLERABLE AT THIS TIME. CURRENTLY SITTING UP IN CHAIR. BEDBATH PERFORMED. ATTENDS IN PLACE FOR EPISODES OF URINARY INCONTINENCE - CHANGING PRN TO KEEP C/D/I. CALL LIGHT IN REACH. MD OH ROUNDING THIS MORNING - DISCUSSED RESTARTING ALL HOME PSYCH MEDS. ORDER RECEIVED TO RESTART DAILY PO XYPREXA AND PO WELLBUTRIN AT HOME DOSES. DOSAGE VERIFIED WITH AT BEDSIDE.
--- NOTE | 2024-10-22 13:49 | NUR ---
REPORT GIVEN TO ACCEPTING RN ON MEDICAL FLOOR TO ASSUME CARE FOLLOWING TRANSFER
[2024-10-22 14:08] VITALS: BP 124/66
--- NOTE | 2024-10-22 14:14 | NUR ---
TRANSFER PT ARRIVED TO ROOM WITHOUT COMPLICATION. ON ROOM AIR, PT REPORTS BEING "CONTINENT", BED SWAPPED. SKIN SEEMS TO BE UNCHANGED FROM PREVIOUS ASSESSMENT. PT INTRODUCED TO ROOM. BED IN LOWEST POSITION, CALL LIGHT WITHIN REACH.
[2024-10-22] MEDS ORDERED: NS 250 ML IV PRN (15:20)
--- NOTE | 2024-10-22 17:12 | NUR ---
SHIFT SUMMARY PT AOX4, COOPERATIVE, ABLE TO MAKE NEEDS KNOWN. PT HAS REMAINED IN BED SINCE TRANSFER TO [facility] FLOOR. USING URINAL APPROPRIATELY. COMPLAINED OF PAIN ONCE, MEDICATED PER EMAR. FAMILY IS BEDSIDE. NO OTHER COMPLAINTS THIS SHIFT. BED IN LOWEST POSITION, CALL LIGHT WITHIN REACH.
[2024-10-22 17:42] LABS: Albumin, Blood 2.3 g/dL (3.4-5.0); Albumin/Globulin Ratio 0.6 (0.8-1.8); Bilirubin, Total 0.8 mg/dL (0.1-1.0); Bun/Creatinine Ratio 9.6 (12.0-20.0); Calcium, Blood 8.8 mg/dL (8.5-10.1); Creatinine, Blood 3.84 mg/dL (0.60-1.20); Potassium, Blood 3.4 mmol/L (3.5-5.5); Total Protein, Blood 6.3 g/dL (6.4-8.2)
[2024-10-22 19:49] VITALS: BP 128/64
[2024-10-23 05:33] VITALS: BP 135/60
--- NOTE | 2024-10-23 05:39 | NUR ---
SHIFT SUMMARY NOC PT A/O X 4. WITHDRAWN, BUT COOPERATIVE WITH CARE. VSS. NO ACUTE EVENTS TO REPORT. PT POST OP DAY 6 L FEMORAL FX REPAIR, PAIN BEING MANAGED PER EMAR. IMMOBILIZER DEVICE IN PLACE ON LLE OVER DRESSINGS. PT GIVEN PRUNE JUICE WITH EVENING RX TO HELP INTITIATE BM BEFORE GIVING MOM, DUE TO PT CONCERNS OF NOT MAKING IT TO BSC IN TIME DUE TO LIMITED MOBILTIY. PT CURRENTLY RESTING WITH BED IN LOWEST POSITION, AND CALL LIGHT WITHIN REACH.
[2024-10-23 05:40] LABS: BASOPHILS ABSOLUTE AUTO 0.01 K/mm3 (0.00-0.23); BASOPHILS PERCENT AUTO 0 % (0-2); EOSINOPHILS ABSOLUTE AUTO 0.55 K/mm3 (0.00-0.68); EOSINOPHILS PERCENT AUTO 8 % (0-6); Hematocrit 24.4 % (37.0-53.0); Hemoglobin 7.9 g/dL (13.5-17.5); IMMATURE GRAN ABSOLUTE AUTO 0.03 K/mm3 (0.00-0.10); IMMATURE GRAN PERCENT AUTO 0 % (0-1); LYMPHOCYTES ABSOLUTE AUTO 2.24 K/mm3 (0.84-5.20); LYMPHOCYTES PERCENT AUTO 33 % (21-46); MONOCYTES ABSOLUTE AUTO 0.74 K/mm3 (0.16-1.47); MONOCYTES PERCENT AUTO 11 % (4-13); Mean Corpuscular HGB 31.5 pg (26.0-34.0); Mean Corpuscular HGB Conc 32.4 g/dL (31.5-36.5); Mean Corpuscular Volume 97 fL (80-100); Mean Platelet Volume 9.1 fL (9.1-12.4); NEUTROPHILS ABSOLUTE AUTO 3.32 K/mm3 (1.96-9.15); NEUTROPHILS PERCENT AUTO 48 % (41-73); Platelet Count 202 K/mm3 (150-400); RDW Coefficient Variation 14.1 % (11.7-14.2); RDW Standard Deviation 47.8 fL (35.1-46.3); Red Blood Cell Count 2.51 M/mm3 (4.30-5.90); White Blood Cell Count 6.89 K/mm3 (4.00-11.30)
[2024-10-23 06:06] LABS: Albumin, Blood 2.5 g/dL (3.4-5.0); Anion Gap 8 mmol/L (3-11); Blood Urea Nitrogen 43 mg/dL (8-24); CO2, Blood 27 mmol/L (21-32); Calcium, Blood 8.9 mg/dL (8.5-10.1); Chloride, Blood 107 mmol/L (98-108); Creatinine, Blood 4.28 mg/dL (0.60-1.20); Glomerular Filtration Rate 15 (60-); Glucose, Blood 96 mg/dL (70-99); Magnesium, Blood 2.6 mg/dL (1.6-2.4); Phosphorus, Blood 4.4 mg/dL (2.5-4.9); Potassium, Blood 3.9 mmol/L (3.5-5.5); Sodium, Blood 138 mmol/L (136-145)
[2024-10-23 07:49] VITALS: BP 141/73
[2024-10-23] MEDS ORDERED: Potassium Chloride 10 Meq Tablet SA PO SCH (08:00)
[2024-10-23] MEDS ORDERED: OLANZapine 10 MG Tab PO SCH (09:00)
[2024-10-23] MEDS ORDERED: buPROPion HCL 150 MG TAB.SR.12H PO SCH (09:00)
[2024-10-23 15:32] VITALS: BP 127/64
[2024-10-23 16:45] LABS: Albumin, Blood 2.6 g/dL (3.4-5.0); Albumin/Globulin Ratio 0.6 (0.8-1.8); Bilirubin, Total 0.5 mg/dL (0.1-1.0); Bun/Creatinine Ratio 10.4 (12.0-20.0); Calcium, Blood 9.1 mg/dL (8.5-10.1); Creatinine, Blood 4.31 mg/dL (0.60-1.20); Globulin, Blood 4.1 g/dL (2.2-4.0); Total Protein, Blood 6.7 g/dL (6.4-8.2)
--- NOTE | 2024-10-23 18:32 | NUR ---
SHIFT SUMMARY PT A&OX4, VSS, DID NOT AMB THIS SHIFT, IS TOLERATING PO, VOIDING URINE, AND PAIN MANAGED PER EMAR. IMMOBILIZER REMAINS IN PLACE. LAST DOSE OF IRON GIVEN. NO OTHER ACUTE CHANGES. PLAN FOR D/C TO SNF, INSURANCE AUTH PENDING. CALL LIGHT WITHIN REACH AND PT ABLE TO MAKE NEEDS KNOWN.
[2024-10-23 19:31] VITALS: BP 122/59
[2024-10-24] VITALS (19 sets, daily range): BP systolic 91–140; BP diastolic 56–71
--- NOTE | 2024-10-24 05:20 | NUR ---
SHIFT SUMMARY NOC PT A/O X 4. WITHDRAWN, BUT PLEASANT AND COOOPERATIVE WITH CARE. VSS. POST OP DAY 7 L FEMUR ORIF, HAS IMMOBILIZER IN PLACE. PAIN BEING MANAGED PER EMAR. DR MADRIGAL SAW PT AT BEGINNING OF SHIFT AND TOLD PT THAT THEY WILL HAVE DIALYSIS TODAY. PT HAS PERM CATH IN [facility]. PT RECEIVED LAST DOSE OF IRON REPLACEMENT YESTERAY. PT CURRENTLY RESTING WITH BED IN LOWEST POSITION, AND CALL LIGHT WITHIN REACH.
[2024-10-24 06:10] LABS: BASOPHILS PERCENT AUTO 0 % (0-2); EOSINOPHILS ABSOLUTE AUTO 0.48 K/mm3 (0.00-0.68); EOSINOPHILS PERCENT AUTO 7 % (0-6); Hematocrit 23.5 % (37.0-53.0); Hemoglobin 7.8 g/dL (13.5-17.5); IMMATURE GRAN ABSOLUTE AUTO 0.03 K/mm3 (0.00-0.10); IMMATURE GRAN PERCENT AUTO 0 % (0-1); LYMPHOCYTES ABSOLUTE AUTO 2.03 K/mm3 (0.84-5.20); LYMPHOCYTES PERCENT AUTO 29 % (21-46); MONOCYTES ABSOLUTE AUTO 0.84 K/mm3 (0.16-1.47); MONOCYTES PERCENT AUTO 12 % (4-13); Mean Corpuscular HGB 32.4 pg (26.0-34.0); Mean Corpuscular HGB Conc 33.2 g/dL (31.5-36.5); Mean Corpuscular Volume 98 fL (80-100); Mean Platelet Volume 9.1 fL (9.1-12.4); NEUTROPHILS ABSOLUTE AUTO 3.69 K/mm3 (1.96-9.15); NEUTROPHILS PERCENT AUTO 52 % (41-73); Platelet Count 217 K/mm3 (150-400); RDW Coefficient Variation 14.3 % (11.7-14.2); RDW Standard Deviation 48.8 fL (35.1-46.3); Red Blood Cell Count 2.41 M/mm3 (4.30-5.90); White Blood Cell Count 7.07 K/mm3 (4.00-11.30)
[2024-10-24 06:33] LABS: Albumin, Blood 2.5 g/dL (3.4-5.0); Anion Gap 10 mmol/L (3-11); Blood Urea Nitrogen 49 mg/dL (8-24); Bun/Creatinine Ratio 10.7 (12.0-20.0); CO2, Blood 25 mmol/L (21-32); Chloride, Blood 106 mmol/L (98-108); Creatinine, Blood 4.56 mg/dL (0.60-1.20); Glomerular Filtration Rate 14 (60-); Glucose, Blood 92 mg/dL (70-99); Phosphorus, Blood 4.5 mg/dL (2.5-4.9); Sodium, Blood 137 mmol/L (136-145)
--- NOTE | 2024-10-24 17:50 | NUR ---
PT HAD DIALYSIS TODAY AROUND 0830 AND HAS BEEN LETHARGIC SINCE. PT HAD NO C/O PAIN, SOB OR CHEST PAIN
[2024-10-25 03:39] VITALS: BP 137/67
--- NOTE | 2024-10-25 05:32 | NUR ---
SHIFT SUMMARY; PATIENT SLEPT IN LONG INTERVALS. MEDICATED SEVERAL TIMES FOR PAIN. NO BM'S THIS SHIFT.
[2024-10-25 07:15] LABS: Albumin, Blood 2.7 g/dL (3.4-5.0); Anion Gap 8 mmol/L (3-11); Blood Urea Nitrogen 33 mg/dL (8-24); Bun/Creatinine Ratio 9.5 (12.0-20.0); CO2, Blood 32 mmol/L (21-32); Calcium, Blood 8.7 mg/dL (8.5-10.1); Chloride, Blood 99 mmol/L (98-108); Creatinine, Blood 3.48 mg/dL (0.60-1.20); Glomerular Filtration Rate 19 (60-); Glucose, Blood 95 mg/dL (70-99); Phosphorus, Blood 2.6 mg/dL (2.5-4.9); Potassium, Blood 3.7 mmol/L (3.5-5.5); Sodium, Blood 135 mmol/L (136-145)
[2024-10-25 07:31] VITALS: BP 141/73
[2024-10-25] MEDS ORDERED: Percocet 5-3251 EACH PO (08:29)
--- NOTE | 2024-10-25 11:01 | NUR ---
[facility] ALL PIV'S REMOVED. D/C PACKET IN HAND
== END 2024-10-25 10:38 | DRG 480 ==
LOC: ER 14:35 → ERHOLD 18:22 → MEDS 18:22 → SURS 10-17 17:05 → MEDS 10-22 14:05
PROVIDERS: Hospitalist; Internal Medicine; Nurse Practitioner Acute Care; Student in an Organized Health Care Education/Training Program; ADMIT Student in an Organized Health Care Education/Training Program
PROC: 0QSC04Z Reposition Left Lower Femur with Internal Fixation Device, Open Approach (ICD-10-PCS; principal; 2024-10-18)
PROC: 02HV33Z Insertion of Infusion Device into Superior Vena Cava, Percutaneous Approach (ICD-10-PCS; 2024-10-20)
PROC: 0JH60XZ Insertion of Tunneled Vascular Access Device into Chest Subcutaneous Tissue and Fascia, Open Approach (ICD-10-PCS; 2024-10-20)
PROC: 5A1D70Z Performance of Urinary Filtration, Intermittent, Less than 6 Hours Per Day (ICD-10-PCS; 2024-10-20)
PROC: B5181ZA Fluoroscopy of Superior Vena Cava using Low Osmolar Contrast, Guidance (ICD-10-PCS; 2024-10-20)
PROC: B548ZZA Ultrasonography of Superior Vena Cava, Guidance (ICD-10-PCS; 2024-10-20)
DX: S72.492A Other fracture of lower end of left femur, initial encounter for closed fracture (principal); N18.6 End stage renal disease; I12.0 Hypertensive chronic kidney disease with stage 5 chronic kidney disease or end stage renal disease; N25.81 Secondary hyperparathyroidism of renal origin; G93.40 Encephalopathy, unspecified; Z99.2 Dependence on renal dialysis; F31.9 Bipolar disorder, unspecified; G89.29 Other chronic pain; M19.90 Unspecified osteoarthritis, unspecified site; M51.369 Other intervertebral disc degeneration, lumbar region without mention of lumbar back pain or lower extremity pain; T68.XXXA Hypothermia, initial encounter; N40.0 Benign prostatic hyperplasia without lower urinary tract symptoms; E78.5 Hyperlipidemia, unspecified; W10.1XXA Fall (on)(from) sidewalk curb, initial encounter; M25.462 Effusion, left knee; K59.00 Constipation, unspecified; D63.1 Anemia in chronic kidney disease; R50.9 Fever, unspecified; E87.6 Hypokalemia; D50.9 Iron deficiency anemia, unspecified; Z88.8 Allergy status to other drugs, medicaments and biological substances; Z79.899 Other long term (current) drug therapy; Z85.828 Personal history of other malignant neoplasm of skin; Z90.49 Acquired absence of other specified parts of digestive tract; Z90.5 Acquired absence of kidney
CPT/HCPCS: 29505; 36415; 36558; 71045; 73562-LT; 73700; 76937; 77001; 80048; 80053; 80069; 81001; 83540; 83550; 83735; 84100; 85025; 85027; 85610; 86704; 87340; 93005; 93010; 94760; 94762; 97110; 97110-CQ; 97162; 97165; 97530; 97530-CQ; 99152; 99285-25; A9270; C1713; C1750; C1769; C1894; J0690; J1100; J1171; J1644; J2250; J2270; J2371; J2405; J2704; J2916; J3010; J7030; J7050; Q5106